=== PATIENT | male | born 1950 | race Caucasian/White ===

== ENCOUNTER 2022-02-18 21:21 | Observation (INO) | payer MEDICARE, OTHER ==
[~2022-02-18] VITALS: Ht 170.2 cm; Wt 90.7 kg
[~2022-02-18 21:21] MED LIST: ASPI-556 PO; GLUC1TAB PO; METO-391 PO; OMEP40CA21 PO
[2022-02-18] MEDS ORDERED: ONDANSETRON 4MG INJ IVP ONE (22:00)
[2022-02-18] MEDS ORDERED: 0.9%NACL 1000ML 1,000 ML IV SCH (22:00)
[2022-02-18 22:05] LABS: BASOPHILS % (AUTO) 0.3 % (0.0-5.0); EOSINOPHILS % (AUTO) 0.4 % (0.0-8.0); HEMATOCRIT 48.9 % (42-54); LYMPHOCYTES % (AUTO) 5.4 % (21.0-51.0); MEAN CORPUSCULAR HEMOGLOBIN 30.3 pg (27.0-33.0); MEAN CORPUSCULAR HGB CONC 33.7 g/dL (32.0-36.0); MEAN CORPUSCULAR VOLUME 89.9 fL (79-99); NEUTROPHILS % (AUTO) 87.6 % (40.0-77.0); PLATELET COUNT (AUTO) 246 K/uL (130-400); RED BLOOD CELL COUNT(AUTO) 5.44 MIL/uL (4.50-6.20); RED CELL DISTRIBUTION WIDTH 12.2 % (11.0-15.5); WHITE BLOOD COUNT (AUTO) 15.7 K/uL (4.8-10.8)
[2022-02-18 22:12] LABS: APPEARANCE,URINE CLEAR (CLEAR); BILIRUBIN,URINE NEGATIVE (NEGATIVE); COLOR,URINE YELLOW (YELLOW); GLUCOSE, URINE (UA) NEGATIVE (NEGATIVE); KETONES,URINE NEGATIVE (NEGATIVE); LEUKOCYTE ESTERASE ,URINE NEGATIVE Leu/uL (NEGATIVE); NITRATE,URINE NEGATIVE (NEGATIVE); OCCULT BLOOD,URINE NEGATIVE (NEGATIVE); PROTEIN,URINE 20 mg/dL (NEGATIVE); UROBILINOGEN,URINE 0.2 mg/dL (0.2-1.0)
[2022-02-18 22:21] LABS: ALBUMIN 3.8 g/dL (3.5-5.0); CREATININE 1.1 mg/dL (0.5-1.5); POTASSIUM 4.1 mmol/L (3.5-5.1); TOTAL PROTEIN, SERUM 7.2 g/dL (6.0-8.3)
[2022-02-18 22:21] LABS: MUCUS,URINE RARE LPF (None Seen); OTHER CASTS, URINE 2 /LPF (None Seen); WBC,URINE 0-1 /HPF (0-1)
[2022-02-19] MEDS ORDERED: LACTULOSE 20 GM/30 ML UDCUP PO PRN (02:30)
[2022-02-19] MEDS ORDERED: MAG/ALUM/SIMETH 30 ML UDCUP PO PRN (02:30)
[2022-02-19] MEDS ORDERED: ACETAMINOPHEN 325 MG TAB PO PRN ×2 (02:30)
[2022-02-19] MEDS ORDERED: ONDANSETRON 4MG INJ IV PRN (02:30)
[2022-02-19] MEDS ORDERED: ACETAMINOPHEN WITH CODEINE 1 TAB TAB PO PRN (02:30)
[2022-02-19] MEDS: 0.9%NACL 1000ML 1,000 ML IV SCH ×3 (03:15→20:58)
[2022-02-19] MEDS: ZOSYN 3.375GM +NS 50ML IV SCH ×3 (03:15→17:45)
[2022-02-19] MEDS: ENOXAPARIN SODIUM 40 MG/0.4 ML SYRINGE SQ SCH (08:23)
[2022-02-19] MEDS: FAMOTIDINE 20MG VIAL IV SCH ×2 (08:23→20:58)
[2022-02-19 11:43] VITALS: BP 130/79
[2022-02-19 15:47] VITALS: BP 135/75
[2022-02-19 19:56] VITALS: BP 112/64
[2022-02-19 23:45] VITALS: BP 113/67
[2022-02-20] MEDS: ZOSYN 3.375GM +NS 50ML IV SCH ×2 (03:48→11:19)
[2022-02-20 04:43] VITALS: BP 116/71
[2022-02-20 06:20] LABS: BASOPHILS % (AUTO) 0.4 % (0.0-5.0); EOSINOPHILS % (AUTO) 2.7 % (0.0-8.0); HEMATOCRIT 41.4 % (42-54); LYMPHOCYTES % (AUTO) 22.5 % (21.0-51.0); MEAN CORPUSCULAR HEMOGLOBIN 29.9 pg (27.0-33.0); MEAN CORPUSCULAR HGB CONC 33.8 g/dL (32.0-36.0); MEAN CORPUSCULAR VOLUME 88.5 fL (79-99); NEUTROPHILS % (AUTO) 63.2 % (40.0-77.0); PLATELET COUNT (AUTO) 186 K/uL (130-400); RED BLOOD CELL COUNT(AUTO) 4.68 MIL/uL (4.50-6.20); RED CELL DISTRIBUTION WIDTH 12.3 % (11.0-15.5); WHITE BLOOD COUNT (AUTO) 4.8 K/uL (4.8-10.8)
[2022-02-20 06:32] LABS: POTASSIUM 3.5 mmol/L (3.5-5.1)
[2022-02-20 08:00] VITALS: BP 131/68
[2022-02-20] MEDS: 0.9%NACL 1000ML 1,000 ML IV SCH (08:30)
[2022-02-20] MEDS: FAMOTIDINE 20MG VIAL IV SCH (09:17)
[2022-02-20] MEDS: ENOXAPARIN SODIUM 40 MG/0.4 ML SYRINGE SQ SCH (09:17)
[2022-02-20 11:38] VITALS: BP 130/70
[2022-02-22 17:09] LABS: CRYPTOSPORIDIUM EIA STOOL Negative (Negative)
== END 2022-02-20 15:00 | disposition home or self-care (01) ==
LOC: EDH 21:21 → EDHIP 02-19 02:29 → 3BH 02-19 11:13
PROVIDERS: ADMIT Hospitalist; ATTEND Hospitalist
DX: I95.1 Orthostatic hypotension (principal); K52.9 Noninfective gastroenteritis and colitis, unspecified; D72.829 Elevated white blood cell count, unspecified; I10 Essential (primary) hypertension; E78.5 Hyperlipidemia, unspecified; K21.9 Gastro-esophageal reflux disease without esophagitis; I25.10 Atherosclerotic heart disease of native coronary artery without angina pectoris; Z85.828 Personal history of other malignant neoplasm of skin; Z79.82 Long term (current) use of aspirin; Z90.49 Acquired absence of other specified parts of digestive tract; Z79.899 Other long term (current) drug therapy
CPT/HCPCS: 83735 ×2; 84484; 80053; 83690; 85025 ×2; 81001; 36415 ×3; 71045; 70450; 93005; 96376 ×2; 96372 ×2; 96361; 96365; 96366 ×2; 96375; 99285; 83880; 87046; 87177; 87324; 82270; 74176; 87328; 83630; 80048; G0378 ×36; J3490 ×3; J7030; J2543 ×5; J1650 ×2